=== PATIENT | female | born 1960 | race Caucasian/White ===

== ENCOUNTER 2016-10-16 22:00 | Emergency (ER) | payer OTHER ==
--- NOTE | ~2016-10-16 | CR72 ---
[facility] A Service of [facility] & [facility] RADIOLOGY TEXT RESULTS PATIENT: ROMMEL PATRICK LOCATION: CFTX : 62 UNIT #: [id number] AGE: [address]: ONEIL OWEN APRN SEX: F ORDER DR: [id number] [facility] [address] [place], [place] [address] [id number] E MR#: [id number] Acc #: [id number] NAME: ROMMEL PATRICK : 1960 SEX: F STUDY DATE/TIME: 10/16/2016 22:07 UNIT: [facility] ROOM: STUDY DESCRIPTION: CR Chest Single View Portable Attending Physician: Oneil Owen Aprn Ordering Physician: Oneil Owen Aprn Primary Care Physician: Arash Celeste M.D. MEDICAL IMAGING REPORT This report is preliminary unless electronic signature is present EXAM AP portable chest, 10/16/2016 at 22:07 HISTORY Cough and back pain for 3 weeks. Smoking history. COMPARISON PA and lateral chest radiograph, 03/16/2011 FINDINGS Heart size is within normal limits. Clear lungs. No pleural effusion or pneumothorax. Cholecystectomy. IMPRESSION No acute chest findings. Dictated by... Susi Mcneal M.D. THIS IS AN ELECTRONICALLY VERIFIED REPORT Susi Mcneal M.D. at 10/17/2016 10:03 AM RUY/benitez TD: 10/17/2016 09:34 JOB #: [id number] MEDICAL IMAGING REPORT COPY
[~2016-10-16 22:00] MED LIST: ALLERGY MEDICAT25 M1 PO; AMOXICILLIN PO; ANTIVERT; ANTIVERT PO; CIPRO PO; DARVOCET-N 1001 TAB PO; DIZZINESS MED; FLEXERIL; FLEXERIL PO; LODINE PO; METROGEL-VAGINA70 GM VG; ORUDIS75 M1 PO; PREDNISONE PO; ULTRAM PO; ZITHROMAX1 G/PKT PO
[2016-10-16 22:24] LABS: INFLUENZA A NEG (NEG); INFLUENZA B NEG (NEG)
== END 2016-10-16 22:46 | disposition home or self-care (01) ==
LOC: CFTX 22:00
PROVIDERS: Nurse Practitioner Family
DX: J06.9 Acute upper respiratory infection, unspecified (principal); F17.210 Nicotine dependence, cigarettes, uncomplicated; Z90.49 Acquired absence of other specified parts of digestive tract
CPT/HCPCS: 71010; 87804; 99283